=== PATIENT | female | born 1990 | race Caucasian/White ===

== ENCOUNTER 2025-04-19 14:00 | Outpatient (AMB) | payer MEDICAID, SELFPAY ==
[2025-04-19 14:25] VITALS: BP 124/76; PULSE 84; RESP 18; TEMP 36.6; O2SAT 99; BMI 41.0
--- NOTE | 2025-04-19 14:25 | OBCLNT_ITS ---
Vital Signs 04/19/25 14:25 Height 1.57 m Height Method Stated Weight 101.718 kg Weight Measurement Method Standing Scale BMI 41.0 BP 124/76 Blood Pressure Source Automatic Cuff Blood Pressure Location Right Upper Arm Position Sitting Respiration 18 Pulse 84 Pulse Source Monitor Temp 97.9 F Temp Source Temporal Artery Scan Pulse Oximetry (%) 99 Oxygen Delivery Method Room Air Allergies/Home Meds Allergies & Medications Allergies No Known Allergies Allergy (Verified 04/19/25 14:26) Medication Reconciliation No Known Home Medications 04/19/25 [History Confirmed 04/19/25] Intake Visit Data Collection New Patient or Established: New Patient (never been to [facility]) Reason for Visit:: OBI Seen by Clinical Staff ONLY (RN/MA): No Director Of Aviation Required: No Do You Feel Safe at Home: Yes Authorities Contacted: N/A PCP or OBGYN visit in last 3 months: No Hx Now: Yes Are you currently on any form of Control: No Last menstrual period: 02/17/25 Pain Present Currently: No Pain Scale Used: Agosto-Recinos/Numerical Pain scale:: 0 Smoking Status Smoking Status: Never smoker Immunizations Flu Vaccine in the Last 12 Months: No Flu Vaccine Exclusion Criteria: Refused by Patient Questionnaires Covid-19 Vaccine Questionnaire Has patient been vacinated for Covid-19 Have you been vacinated for Covid-19: Yes PHQ-9 PHQ-2 Over the last 2 weeks, how often have you been bothered by any of the following problems? 1. Little interest or pleasure in doing things: not at all 2. Feeling down, depressed, or hopeless: not at all Total score: 0 PHQ-9 3. Trouble falling or staying asleep, or sleeping too much: Not at all 4. Feeling tired or having little energy: Not at all 5. Poor appetite or overeating: Not at all 6. Feeling bad about yourself - or that you are a failure or have let yourself or your family down: Not at all 7. Trouble concentrating on things, such as reading the newspaper or watching television: Not at all 8. Moving or speaking so slowly that other people could have noticed? - Or the opposite - being so fidgety or restless that you have been moving around a lot more than usual: not at all 9. Thoughts that you would be better off or of hurting yourself in some way: Not at all Total score: 0 If you checked off any problems, how difficult have these problems made it for you to do your work, take care of things at home, or get along with other people?: not difficult at all Source: Developed by Drs. Prince Wong, Fawn Campos, David Romero and colleagues, with an educational maryanne from [employer]. Depression screen completed yes Social History Living Situation History Marital Status: Lives With: Family Housing: House Tobacco History Smoking Status: Never smoker Second Hand Smoke Exposure: No Alcohol History Alcohol Intake: Never Domestic Abuse History Do You Feel Safe at Home: Yes History of Present Illness HPI Narrative 34 Years old G1?P?0at gestational age?8.5 weeks based on last menstrual period of dated?.02/17/2025 No complaints so far Here for first visit LPS today LMP 02/17/2025 Ultrasound none so far medical problems Allergies certain foods, shrimp/ almonds Surgical history h/o gastric sleeve in 12/2021 and gall bladder removed at age 17 social history negative was on zepbound , 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 Medical History Additional Operations/Hospitalizations (year & reason): gastric sleeve on 01/01/2025 h/o cholecystectomy Other Relevant History: patient has a R ov cyst / under surveillance Patient's MOM with breast cancer Dad with DM patient's sister has a learning disability Hypothyroid history in family OB Initial Visit OB Flowsheet OB Flowsheet Initial Weight: Not Recorded Date -?-?-?-?-?-?-?-?-?-?-?-?- EGA Weight BP Alb Glu CTX Pres Fundal ht FHR Mov Dilation Station Effacement Hx Notes Visit Note 04/19/25 -?-?-?-?-?-?-?-?-?-?-?-?- 8w 5d 101.718 kg 124/76 Menstrual History Menstrual reliability: definite Flow: light Menstrual regularity: regular Monthly: Yes Age at menarche: 13 On control pills at conception: No Associated symptoms (LMP): Reports amenorrhea OB History : 1 Para: 0 Infection History & Risk Evaluation History of STDs: chlamydia (2020) Genetic Screening & History Genetic Screening/Teratology Counseling - Includes patient, baby's father, or anyone in either family with: 1. Patient's age 35 years or older as of estimated date of delivery: No 2. Thalassemia (Welsh, Moldovan, Mediterranean, or Background); MCV less than 80: No 3. Neural Tube Defect (Meningomyelocele, Spina Bifida, or Anencephaly): No 4. Congenital Heart Defect: No 5. Down Syndrome: No 6. Alfredo-Sachs (Ashkenazi Amish, Cajun, Kiswahili [place]): No 7. Pastor Disease (Ashkenazi Amish): No 8. Familial Dysautonomia (Ashkenazi Amish): No 9. Sickle Cell Disease or Trait (): No 10. Hemophilia or other blood disorders: No 11. Muscular Dystrophy: No 12. Cystic Fibrosis: No 13. Franco's Chorea: No 14. Mental Retardation/Autism: Yes 15. Other inherited genetic or chromosomal disorder: No 16. Maternal Metabolic Disorder (EG,TYPE 1 Diabetes, PKU): No 17. Patient or baby's father had a child with defects not listed above: No 18. Recurrent loss or a stillbirth: No 19. Medications (including supplements, vitamins, herbs or otc drugs)/illicit/recreational drugs/alcohol since last menstrual period: No 20. Any other: No Infection History 4. History of STD: chlamydia (2020) Other (see comments) Source: [employer] Review of Systems Review of Systems Systems Reviewed: All systems reviewed, normal except as documented Genitourinary Genitourinary: Reports amenorrhea Office Procedures [facility] LOC & Office Proc's Nursing/Assessment Patient Status: Initial/New Patient OB Clinic Nursing Assessment: Medication Reconciliation, Update PMH in EMR and Vital Signs OB Clinic Coordination of Care: Complex Care and Chronic Disease 1-5, Education Complex Pt/Fam, Consent,records obtained, informed consent, Lab and Imaging orders, Results/Orders obtained and Staff clarify orders Special Needs: Heart tones Miscellaneous Interventions: Blood/Urine Collection and Pelvic/Pap Smear Set up New Patient Charge New Patient Point Assignment: [id number] New Patient Point 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 8.5 weeks today based on LMP of 02/17/2025 NIPT/ Carrier screening/ vitamins / first trimester labs/ refused flu vaccine Pap/ HPV done uterus 8 weeks urine HCG positive /taking vitamins refused flu vaccine Additional Plan Follow Up: 4 Weeks
== END 2025-04-19 15:22 | disposition home or self-care (01) ==
LOC: HODSOBC 14:00
PROVIDERS: Supervising Provider Obstetrics & Gynecology; Visit Provider Obstetrics & Gynecology
DX: O09.511 Supervision of elderly primigravida, first trimester (principal); O09.891 Supervision of other high risk pregnancies, first trimester; O99.841 Bariatric surgery status complicating pregnancy, first trimester; Z3A.08 8 weeks gestation of pregnancy; Z28.21 Immunization not carried out because of patient refusal
CPT/HCPCS: 81025; 99205; G0463